=== PATIENT | female | born 1980 | race African-American/Black ===

== ENCOUNTER 2018-10-28 02:08 | Emergency (ER) | payer BC, SELFPAY ==
[2018-10-28] MEDS ORDERED: Ketorolac Tromethamine 30 MG/ML VIAL ONE (02:49)
== END 2018-10-28 03:15 | disposition home or self-care (01) ==
LOC: ERS 02:08
DX: M72.2 Plantar fascial fibromatosis (principal); D64.9 Anemia, unspecified
CPT/HCPCS: 96372; J1885

== ENCOUNTER 2020-04-28 07:50 | Outpatient (CLI) | payer BC ==
--- NOTE | 2020-04-28 09:00 | MMO ---
Bilateral MAMMO Bilat Diag [facility]. CLINICAL HISTORY: Patient is 39 years old and is seen for diagnostic exam,palpable abnormality at 8 o'clock and pain in the left breast. The patient has the following family history of breast cancer: mother; maternal grandmother; 3 maternal aunts and maternal uncle. VIEWS: The views performed were: bilateral craniocaudal with tomosynthesis; bilateral mediolateral oblique with tomosynthesis; and bilateral mediolateral with tomosynthesis. FILMS COMPARED: The present examination has been compared to a prior imaging study performed at [facility] on 04/28/2020. This study has been interpreted with the assistance of computer-aided detection. MAMMOGRAM FINDINGS: There are scattered fibroglandular densities. There is a focal asymmetry seen in the left breast at 8 o'clock. This corresponds to the area of palpable concern. Sonography of this region demontrates a debris filled fluid collection. In the right breast, there are no suspicious masses, calcifications or areas of architectural distortion. IMPRESSION: HISTORY AND IMAGING FINDINGS ARE COMPATIBLE WITH BREAST ABCESS OR INFLAMED SEBACEOUS CYST. ULTRASOUND FOLLOW UP AFTER TREATMENT RECOMMENDED. THE RESULTS OF THIS EXAM WERE SENT TO THE PATIENT. ACR BI-RADS Category 3 - Probably benign finding - short interval follow-up suggested. [facility] will notify the patient of the need for additional imaging services. MAMMOGRAPHY NOTE: 1. A negative mammogram report should not delay a biopsy if a dominant of clinically suspicious mass is present. 2. Approximately 10% to 15% of breast cancers are not detected by mammography. 3. Adenosis and dense breasts may obscure an underlying neoplasm. Reported by: BAHMAN PATTERSON MD Electonically Signed: [id number]
--- NOTE | 2020-04-28 09:03 | ULT ---
EXAM: US Breast Limited Lt PROVIDED CLINICAL HISTORY: Enlarging left breast mass, pain and redness COMPARISON: Concurrently performed diagnostic mammogram FINDINGS: Limited sonographic interrogation of the left breast was performed at the 8:00 position in the region of palpable concern. There is a 2.7 cm heterogeneous hypoechoic mass with mobile internal debris seen in this location. A sinus tract to the overlying skin surface is not definitely seen. IMPRESSION: Clinical and imaging findings most compatible with breast abscess or inflamed sebaceous cyst. Follow- up ultrasound is recommended after treatment. BI-RADS 3 -- probably benign, 6-month follow-up
== END 2020-04-28 07:51 | disposition home or self-care (01) ==
LOC: BICMAMMO 07:50
PROVIDERS: ATTEND Nurse Practitioner Family
DX: N63.20 Unspecified lump in the left breast, unspecified quadrant (principal)
CPT/HCPCS: 77066; G0279

== ENCOUNTER 2020-05-02 20:26 | Emergency (ER) | payer BC ==
[2020-05-02] MEDS ORDERED: Lidocaine 1% w/Epinephrine 1:100K 20 ML VIAL ONE (20:37)
== END 2020-05-02 21:19 | disposition home or self-care (01) ==
LOC: ERS 20:26
DX: L02.213 Cutaneous abscess of chest wall (principal); D64.9 Anemia, unspecified
CPT/HCPCS: 10060

== ENCOUNTER 2021-03-06 22:35 | Emergency (ER) | payer BC ==
[2021-03-06 23:18] LABS: #Basophils 0.1 thou/uL (0.0-0.2); #Eosinphils 0.1 thou/uL (0.0-0.7); #Lymphocytes 3.8 thou/uL (1.20-3.40); #Monocytes 0.8 thou/uL (0.11-0.59); #Neutrophils 5.5 thou/uL (1.40-6.50); %Basophils 0.9 % (0.0-1.0); %Eosinophils 0.9 % (0.0-10.0); %Lymphocytes 36.9 % (21.0-51.0); %Monocytes 7.9 % (0.0-10.0); %Neutrophils 53.4 % (42.0-75.0); Hemoglobin 12.2 g/dL (12.0-16.0); Mean Corpuscular HGB CONC 32.7 g/dL (32.0-36.0); Mean Corpuscular Hemoglobin 25.3 pg (27.0-31.0); Mean Corpuscular Volume 77.4 fL (78.0-98.0); Mean Platelet Volume 10.8 fL (7.4-10.4); Platelet Count 231 thou/uL (130-400); RBC Distribution Width 17.6 % (11.5-14.5); Red Blood Cell (RBC) Count 4.82 mill/uL (4.20-5.40); White Blood Cell (WBC) Count 10.4 thou/uL (4.8-10.8)
[2021-03-06] MEDS ORDERED: Morphine 4 MG/ML VIAL ONE (23:53)
[2021-03-06] MEDS ORDERED: Ondansetron PF 4 MG/2 ML Vial ONE (23:54)
[2021-03-07 00:14] LABS: ALT (SGPT) 18 U/L (8-55); AST (SGOT) 13 U/L (5-34); Alkaline Phosphatase 107 U/L (40-110); Anion Gap 11 mmol/L (10-20); BUN (Urea Nitrogen) 7 mg/dL (7.0-18.7); Bilirubin, Total 0.3 mg/dL (0.2-1.2); Calc. Creatinine Clearance 0 mL/min (70-130); Calcium 9.3 mg/dL (7.8-10.44); Carbon Dioxide 28 mmol/L (22-29); Chloride 102 mmol/L (98-107); Globulin 3.7 g/dL (2.4-3.5); Glucose 121 mg/dL (70-105); Lipase 17 U/L (8-78); Potassium 3.3 mmol/L (3.5-5.1); Protein, Total 7.7 g/dL (6.0-8.3); Sodium 138 mmol/L (136-145)
== END 2021-03-07 00:40 | disposition home or self-care (01) ==
LOC: ERS 22:35
DX: M94.0 Chondrocostal junction syndrome [Tietze] (principal); R03.0 Elevated blood-pressure reading, without diagnosis of hypertension
CPT/HCPCS: 71045; 80053; 83690; 84443; 84484; 85025; 93005; 96374; 96375; J2270; J2405

== ENCOUNTER 2021-03-07 11:35 | Emergency (ER) | payer BC, SELFPAY ==
[2021-03-07] MEDS ORDERED: Acetaminophen 500 MG TAB ONE (14:06)
[2021-03-07] MEDS ORDERED: Ketorolac Tromethamine 30 MG/ML VIAL ONE (14:07)
[2021-03-07] MEDS ORDERED: diphenhydrAMINE 50 MG/ML VIAL ONE (14:07)
[2021-03-07] MEDS ORDERED: Metoclopramide HCl 10 MG/2 ML VIAL ONE (14:07)
== END 2021-03-07 15:55 | disposition home or self-care (01) ==
LOC: ERS 11:35
DX: R51.9 Headache, unspecified (principal); R03.0 Elevated blood-pressure reading, without diagnosis of hypertension; R29.700 NIHSS score 0
CPT/HCPCS: 70450; 96365; 96366; 96375; J1200; J1885; J2765

== ENCOUNTER 2024-01-08 02:15 | Emergency (ER) | payer BC ==
[2024-01-08 03:25] LABS: #Basophils Less than 0.03 10x3/uL (0.0-0.2); %Basophils 0.1 % (0.0-1.0); %Eosinophils 1.2 % (0.0-10.0); %Lymphocytes 42.7 % (21.0-51.0); %Monocytes 7.6 % (0.0-10.0); %Neutrophils 48.2 % (42.0-75.0); Hematocrit 39.6 % (36.0-47.0); Hemoglobin 12.6 g/dL (12.0-16.0); Mean Corpuscular HGB CONC 31.8 g/dL (32.0-36.0); Mean Corpuscular Hemoglobin 25.7 pg (27.0-31.0); Mean Corpuscular Volume 80.8 fL (78.0-98.0); Mean Platelet Volume 10.5 fL (7.4-10.4); Platelet Count 279 10x3/uL (130-400); RBC Distribution Width 16.4 % (11.5-14.5)
[2024-01-08] MEDS ORDERED: Aspirin Chewable 81 MG TAB ONE (03:28)
[2024-01-08 03:39] LABS: BHCG - Serum Negative (NEGATIVE); Pregs Control Background? CLEAR/WHITE (CLR/WHITE); Pregs Control Bar Appear? YES (CONTROL BAR)
[2024-01-08 03:53] LABS: Troponin I Less than 0.010 ng/mL (< 0.028)
[2024-01-08 03:57] LABS: ALT (SGPT) 18 U/L (8-55); AST (SGOT) 17 U/L (5-34); Albumin 4.1 g/dL (3.5-5.0); Alkaline Phosphatase 89 U/L (40-110); Anion Gap 15 mmol/L (10-20); BUN (Urea Nitrogen) 15 mg/dL (7.0-18.7); Bilirubin, Total 0.4 mg/dL (0.2-1.2); Calc. Creatinine Clearance 0 mL/min (70-130); Carbon Dioxide 28 mmol/L (22-29); Chloride 99 mmol/L (98-107); Estimated GFR 63; Globulin 3.7 g/dL (2.4-3.5); Glucose 144 mg/dL (70-105); Potassium 3.1 mmol/L (3.5-5.1); Protein, Total 7.8 g/dL (6.0-8.3); Sodium 139 mmol/L (136-145)
[2024-01-08] MEDS ORDERED: Potassium Chloride 20 MEQ TAB ONE (04:04)
[2024-01-08 05:44] LABS: Troponin I 0.021 ng/mL (< 0.028)
== END 2024-01-08 06:05 | disposition home or self-care (01) ==
LOC: ERS 02:15
DX: R07.89 Other chest pain (principal); E87.6 Hypokalemia; I10 Essential (primary) hypertension; Z55.6 Problems related to health literacy; Z79.899 Other long term (current) drug therapy
CPT/HCPCS: 36415; 71045; 80053; 83735; 83880; 84484; 84703; 85025; 93005; 94760